=== PATIENT | female | born 2005 | race Caucasian/White ===

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

== ENCOUNTER 2024-10-08 09:49 | Emergency (ER) | payer SELFPAY ==
[~2024-10-08] VITALS: Ht 165.1 cm; Wt 73.4 kg
[2024-10-08 10:14] VITALS: BP 117/81
[2024-10-08 10:15] VITALS: BP 120/81
[2024-10-08 10:30] VITALS: BP 104/66
[2024-10-08 10:43] LABS: URINE BILIRUBIN - DIPSTICK Negative (NEGATIVE); URINE BLOOD DIPSTICK Negative (NEGATIVE); URINE GLUCOSE - DIPSTICK Negative (NEGATIVE); URINE KETONE Negative (NEGATIVE); URINE LEUK ESTERASE Trace (NEGATIVE); URINE NITRITE - DIPSTICK Negative (Negative); URINE PH 6.5 (4.5-8.0); URINE PROTEIN - DIPSTICK Negative (NEG-TRACE); URINE SPECIFIC GRAVITY 1.025
[2024-10-08 10:45] LABS: URINE COLOR Yellow
[2024-10-08 11:01] LABS: BASO% 0.8 % (0-3); EOS% 2.5 % (0-8); HEMATOCRIT 35.1 % (37.0-47.0); HEMOGLOBIN 11.1 g/dl (12.0-16.0); IMMATURE GRANULOCYTES 0.2 % (0.0-5.0); LYMPH% 26.6 % (15-41); MEAN CELL VOLUME 99.4 fL CALC (80.0-100.0); MEAN CORPUSCULAR HGB 31.4 pG CALC (26.0-32.0); MEAN CORPUSCULAR HGB CONC 31.6 g/dL CAL (32.0-36.0); MONO% 9.5 % (2-13); NEUT# 3.12 thou/uL (2.00-7.15); NEUT% 60.4 % (42-76); RED BLOOD COUNT 3.53 mill/uL (4.20-5.60)
[2024-10-08 11:13] LABS: ALBUMIN 3.9 g/dL (3.2-5.0); CREATININE 0.7 mg/dL (0.5-1.0); TOTAL PROTEIN 6.7 g/dL (6.3-8.2)
[2024-10-08 11:15] LABS: BILIRUBIN, TOTAL 0.7 mg/dL (0.02-1.3)
[2024-10-08 14:18] VITALS: BP 118/62
== END 2024-10-08 14:30 | disposition home or self-care (01) | DRG 998 ==
LOC: ED 09:49
PROVIDERS: Family Medicine
DX: O09.291 Supervision of pregnancy with other poor reproductive or obstetric history, first trimester (principal); O34.81 Maternal care for other abnormalities of pelvic organs, first trimester; N83.202 Unspecified ovarian cyst, left side; Z3A.01 Less than 8 weeks gestation of pregnancy